=== PATIENT | male | born 1970 | race Caucasian/White ===

== ENCOUNTER 2017-10-05 08:57 | Day surgery (SDC) | payer OTHER ==
[2017-10-05 10:55] LABS: IMMEDIATE SPIN CROSSMATCH 1 1
[2017-10-05] MEDS ORDERED: PROPOFOL 40 ML (14:47)
== END 2017-10-05 16:55 | disposition home or self-care (01) ==
LOC: GIL 08:57 → SDS 08:57 → GIL 16:55
DX: I85.00 Esophageal varices without bleeding (principal)
CPT/HCPCS: 36430; 86644; 86850; 86900; 86901; 88305